=== PATIENT | female | born 1970 | race Asian ===

== ENCOUNTER 2020-12-02 14:11 | Outpatient (CLI) | payer BC, SELFPAY ==
--- NOTE | ~2020-12-02 | MM_ITS ---
EXAMINATION: MM screening dot BI w hemanth HISTORY: Screening TECHNIQUE: Craniocaudal and mediolateral oblique 3-D tomosynthesis images were obtained and synthetic 2-D images were generated. CAD analysis was submitted and interpreted. COMPARISON: Breast composed of scattered areas of fibroglandular density. BREAST PARENCHYMAL COMPOSITION: There are scattered areas of fibroglandular density. FINDINGS: There is no evidence of suspicious mass, calcification, or architectural distortion to sugg est malignancy in either breast. There has been no suspicious interval change. IMPRESSION: 1. No mammographic evidence of malignancy. 2. Recommend routine screening mammography in one year. BI-RADS Category 1: Negative Reviewed, dictated and finalized at location A.
== END 2020-12-02 14:12 | disposition home or self-care (01) ==
LOC: CHSIMG 14:15
PROVIDERS: PCP Nurse Practitioner; Visit Provider Nurse Practitioner
DX: Z12.31 Encounter for screening mammogram for malignant neoplasm of breast (principal)
CPT/HCPCS: 77063; 77067

== ENCOUNTER 2023-07-27 15:44 | Outpatient (RCR) | payer OTHER, SELFPAY ==
--- NOTE | 2023-07-28 10:26 | BUOTOPEVAL ---
Assessment and note entered by Melissa Reeves, OT Evaluation Information Assessment Status Evaluation Diagnosis Extensor carpi ulnaris tendinitis Onset 07/04/23 Subjective Information The patient reports no pain at the time of evaluation due to a shot provided by doctor a week prior to evaluation. The patient reports she feels that her wrist is as good as before and that she only sometimes has soreness in wrist. The patient reports that she will be going back to the doctor next week. She stated that brushing her hair and styling it would be severely painful prior to injection and she was unable to work for a few weeks due to the pain. The patient reports that she wants an MRI and so does her doctor, she wants to know exactly what is causing pain in her wrist. 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 Reported Pain Level Pain Score 0: Self Report Assessment OT Clinical Summary The patient is a 53 year old female who was referred to outpatient OT due to pain in R wrist at ulnar side. The patient sustained injury 3 months ago and has been experiencing pain ever since, the patient previously demosntrate 0/10 pain with activities and WNL speech language pathology assistant strength leading to independence with ADLs and work tasks. The patient now demonstrates 0/10 pain following injection from MD but fluctuating pain levels from 6/10 pain in R wrist and minimally impaired speech language pathology assistant strength of dominant hand. The patient demonstrates significant impaired function of R UE scoring 81.8% on QuickDASH questionnaire at evaluation. The patient requires skilled OT to address these deficits and return to PLOF. Plan of Care Interventions Therapeutic Exercise,Manual Therapy,Neuro Re- education,Therapeutic Activities,Hot Pack/Cold Pack,Electrical Stimulation,Self-Care/Home Management,Prosthetic Training,Ultrasound OT Services Indicated Yes Treatment Frequency and 1-2x/week for 10 visits. Duration These treatments will address the objective and functional deficits as defined above. The patient will be advanced safely and appropriately in order for the patient to progress towards his/her prior level of function. Additional exercises will be introduced and as well as a comprehensive home exercise program upon discharge, if needed, ?to ensure carryover of functional gains achieved in the clinic. This treatment plan has been reviewed and agreement upon by the patient.
== END 2023-08-03 20:00 | disposition home or self-care (01) ==
LOC: CHSOT 15:44
PROVIDERS: Visit Provider Orthopaedic Surgery
DX: M67.833 Other specified disorders of tendon, right wrist (principal); M77.8 Other enthesopathies, not elsewhere classified
CPT/HCPCS: 97035; 97110; 97140; 97165